=== PATIENT | female | born 1990 ===

== ENCOUNTER 2021-03-31 08:38 | Day surgery (SDC) | payer SELFPAY ==
[~2021-03-31] VITALS: Ht 167.6 cm; Wt 129.7 kg
[~2021-03-31 08:38] MED LIST: FLONASEALLERGY NS; IBU600 MG PO; NORCO 325 MG-51 TAB PO; TYLENOL 500MG500 MG PO
[2021-03-31 09:11] VITALS: BP 133/87; PULSE 93; TEMP 97.7
[2021-03-31 12:00] VITALS: BP 92/61; PULSE 95; TEMP 97.6
[2021-03-31 12:15] VITALS: BP 94/57; PULSE 75
[2021-03-31 12:30] VITALS: BP 106/60; PULSE 75
[2021-03-31 12:45] VITALS: BP 117/52; PULSE 75
--- NOTE | 2021-03-31 13:39 | NUR ---
1200: Patient arrived back into [facility] from OR. Report recieved from RELIABILITY TECHNICIAN, James, and CHIEF CRUISER, Frankie. Patient drowsy, eyes open in response to name. Significant other, Eligio, at bedside. 1215: Patient doing well, waking up and talking. Requesting sprite. Tolerated well 1230: Patient requesting to use restroom, got use with stand by assist. No complaint of pain or nausea. States arm feels numb d/t block. 1245: Patient able to use restroom, no complaint of pain or nausea. Ate blueberry muffin and tolerated well. 1300: Went through discharge instructions with patient and SO. Verbalized understanding, questions answered. 1305: Patient got dressed with assistance from SO. 1310: Patient escorted to patient entrance via wheelchair. Got into personal vehicle independently. Patient left in the care of Eligio.
== END 2021-03-31 13:10 | disposition home or self-care (01) ==
LOC: SDCO 08:38
DX: S52.572A Other intraarticular fracture of lower end of left radius, initial encounter for closed fracture (principal); E66.9 Obesity, unspecified; Z68.42 Body mass index [BMI] 45.0-49.9, adult; Z79.899 Other long term (current) drug therapy; Z79.82 Long term (current) use of aspirin; Z79.891 Long term (current) use of opiate analgesic
CPT/HCPCS: C1713; C1769; J0690; J1100; J2250; J2704; J2795; J7120